=== PATIENT | male | born 1960 | race Caucasian/White ===

== ENCOUNTER 2023-05-12 13:55 | Emergency (ER) | payer BC ==
--- NOTE | 2023-05-12 14:36 | ED ---
General Adult HPI - General Source: patient, RN notes reviewed, old records reviewed Mode of arrival: ambulatory Limitations: no limitations <Dru Rebollar - Last Filed: 05/12/23 14:35> - General Source: patient, RN notes reviewed, old records reviewed <Zia Mathew - Last Filed: 05/12/23 21:43> - General Chief complaint: Chest Pain Stated complaint: Chest Pain - History of Present Illness Initial comments: 62-year-old male who is otherwise healthy presenting for evaluation of chest discomfort and arm numbness. Pain initially began on the right side of the c hest with some numbness in the right arm and this was followed by numbness to the left arm. 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 No dyspnea. No vomiting. No diaphoresis. (Dru Rebollar) Patient originally presented as a quick note. Presenting with right-sided chest discomfort and bilateral intermittent arm numbness. Numbness numbness has occurred previously, and occurred with movement of his bilateral upper extremities. 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 Denies any pain with this. States he also had an episode earlier today and yesterday of right- sided chest discomfort. Unknown if it is worse with movement. Resolved on its own. No known palliative or provocative factors. Did not radiate. States it was an irritating presence. Denies any fevers, chills, cough. Denies any other acute complaints at this time. Presents for further evaluation at this time. I with the patient when he was placed in a room.Currently has no complaints. (Zia Mathew) - Related Data Allergies Allergy/AdvReac Type Severity Reaction Status Date / Time No Known Allergies Allergy Verified 05/12/23 14:30 Review of Systems ROS Other: All systems not noted in ROS Statement are negative. <Dru Rebollar - Last Filed: 05/12/23 14:35> ROS Other: All systems not noted in ROS Statement are negative. <Zia Mathew - Last Filed: 05/12/23 21:43> ROS Statement: Those systems with pertinent positive or pertinent negative responses have been documented in the HPI. Review of Systems: CONST: Denies fever EYES: Denies blurry vision ENT: Denies nasal congestion C/V: Denies Chest pain RESP: Denies shortness of breath GI: Denies abdominal pain : Denies dysuria SKIN: Denies rash. MSK: Denies joint pain. NEURO: Denies headache (Zia Mathew) Past Medical History Past Medical History: No Reported History History of Any Multi-Drug Resistant Organisms: None Reported Past Surgical History: Hernia Repair Past Psychological History: No Psychological Hx Reported Smoking Status: Never smoker Past Alcohol Use History: Daily, Occasional Past Drug Use History: None Reported <Dru Rebollar Yudy - Last Filed: 05/12/23 14:35> General Exam Limitations: no limitations General appearance: alert, in no apparent distress Head exam: Present: atraumatic, normocephalic <LetyDru gray - Last Filed: 05/12/23 14:35> <Zia Mathew - Last Filed: 05/12/23 21:43> - General Exam Comments Initial Comments: Patient awake alert no acute distress (KalinaDru dorsey) General: Appears in no acute distress. HEAD: Normal with no signs of head trauma. EYES: PERRLA, EOMI, conjunctiva normal, no discharge. ENT: Hearing grossly intact, normal oropharynx. RESPIRATORY: Clear breath sounds bilaterally. No wheezes, rales, or rhonchi. C/V: Regular rate and rhythm. S1 and S2 auscultated, no edema, peripheral pulses 2+ and intact throughout ABD: Abd is soft, nontender, nondistended EXT: Normal range of motion, no obvious deformity. No neck pain. No numbness bilateral patient is appreciated. No tenderness some palpation of the cervical spine, thoracic spine. No chest wall tenderness to palpation. No focal complaints. SKIN: No rashes or lesions observed on exposed skin. NEURO: Alert and oriented x 4. (Zia Mathew) Course Vital Signs 05/12/23 05/12/23 14:30 21:19 Temperature 97.8 F Pulse Rate 72 57 L Respiratory 16 18 Rate Blood Pressure 171/99 166/96 O2 Sat by Pulse 100 98 Oximetry Medical Decision Making - Lab Data Result diagrams: 05/12/23 15:35 05/12/23 15:35 - EKG Data -: EKG Interpreted by Ca <Zia Mathew - Last Filed: 05/12/23 21:43> - Medical Decision Making Was pt. sent in by a medical professional or institution (Dr., PA, ELEMENTARY READING SPECIALIST, urgent care, hospital, or penitentiary...) When possible be specific @ -No Did you speak to anyone other than the patient for history (EMS, parent, family, police, friend...)? What history was obtained from this source @ -No Did you review nursing and triage notes (agree or disagree)? Why? @ -I reviewed and agree with nursing and triage notes Were old charts reviewed (outside hosp., previous admission, EMS record, old EKG, old radiological studies, urgent care reports/EKG's, penitentiary records)? Report findings @ -No old charts were reviewed Differential Diagnosis (chest pain, altered mental status, abdominal pain women, abdominal pain men, vaginal bleeding, weakness, fever, dyspnea, syncope, h eadache, dizziness, GI bleed, back pain, seizure, CVA, palpatations, mental health, musculoskeletal)? @ -Differential Chest Pain: Stable Angina, Unstable Angina, STEMI, NSTEMI Aortic Dissection, Pneumothorax, Musculoskeletal, Esophageal Spasm GERD, Cholecystitis, Pancreatitis, Zoster, this is not meant to be an all-inclusive list. EKG interpreted by me (3pts min.). @ -As above X-rays interpreted by me (1pt min.). @ -Chest x-ray reveals no obvious acute cardio pulmonary process. CT interpreted by me (1pt min.). @ -None done U/S interpreted by me (1pt. min.). @ -None done What testing was considered but not performed or refused? (CT, X-rays, U/S, labs)? Why? 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 We agree patient likely needs an MRI which cannot be done the ER. What meds were considered but not given or refused? Why? @ -None Did you discuss the management of the patient with other professionals (professionals i.e. JERZY Arana, ELEMENTARY READING SPECIALIST, lab, RT, psych nurse, forensic social worker, meat passer, teacher, hydrographical technical officer, family caseworker)? Give summary @ -No Was smoking cessation discussed for >3mins.? @ -No Was critical care preformed (if so, how long)? @ -No Were there social determinants of health that impacted care today? How? (Homele ssness, low income, unemployed, alcoholism, drug addiction, transportation, low edu. Level, literacy, decrease access to med. care, halfway, rehab)? @ -No Was there de-escalation of care discussed even if they declined (Discuss DNR or withdrawal of care, Hospice)? DNR status @ -No What co-morbidities impacted this encounter? (DM, HTN, Smoking, COPD, CAD, Cancer, CVA, ARF, Chemo, Hep., AIDS, mental health diagnosis, sleep apnea, morbid obesity)? @ -None Was patient admitted / discharged? Hospital course, mention meds given and route, prescriptions, significant lab abnormalities, going to OR and other pertinent info. @ -Patient presents for chest pain, and what sounds like a radiculopathy. Asymptomatic at this time. He has no cardiac risk factors other than age. Slightly elevated BMI. Vital signs within acceptable limits. Urgently evaluated as a quick note. Is currently asymptomatic. She'll work up included a normal EKG, chest x-ray, as well as laboratory studies are within acceptable limits including undetectable troponin. I did discuss with him I do believe he is likely expressing chest wall pain earlier as well as radiculopathy in bilateral upper extremities likely secondary to chronic cervical spine degeneration however this patient has been observed here for quite some time I did recommend we obtain a repeat troponin and repeat EKG and he was in agreement this plan. We did discuss imaging of the neck however patient had recent CT marleny ging and he knows that he has a bad neck with arthritis is likely contributing to symptoms of radiculopathy. He may need an MRI. He expressed understanding. Repeat troponin remains undetectable. Repeat EKG within acceptable limits. On reevaluation, patient remains asymptomatic. Heart score is low at 2-3. Patient will be discharged home at this time. He was in agreement this plan. Strict return precautions discussed. Recommended follow-up with PCP and metrologist. I instructed the patient to follow up with their PCP in the next 1-3 days. I explained that the patient should return to the emergency department if they experience any worsening symptoms. Strict return precautions were discussed with the patient. The patient expressed understanding of these instructions. I answered all questions that the patient had. The patient was discharged home in good condition with their prescriptions and follow up information. Undiagnosed new problem with uncertain prognosis? @ -No Drug Therapy requiring intensive monitoring for toxicity (Heparin, Nitro, Insulin, Cardizem)? @ -No Were any procedures done? @ -No Diagnosis/symptom? @ -Chest pain of unknown etiology, cervical radiculopathy Acute, or Chronic, or Acute on Chronic? @ -Acute Uncomplicated (without systemic symptoms) or Complicated (systemic symptoms)? @ -Uncomplicated Side effects of treatment? @ -No Exacerbation, Progression, or Severe Exacerbation? @ -No Poses a threat to life or bodily function? How? (Chest pain, [place], [place], pneumonia, PE, COPD, DKA, ARF, appy, cholecystitis, CVA, Diverticulitis, Homicidal, Suicidal, threat to staff... and all critical care pts) @ -No (Zia Mathew) - Lab Data Lab Results 05/12/23 05/12/23 05/12/23 Range/Units 15:35 15:35 15:35 WBC 6.5 (3.8-10.6) k/uL RBC 5.33 (4.30-5.90) m/uL Hgb 17.4 (13.0-17.5) gm/dL Hct 52.8 (39.0-53.0) % MCV 99.0 (80.0-100.0) fL MCH 32.7 (25.0-35.0) pg MCHC 33.0 (31.0-37.0) g/dL RDW 12.7 (11.5-15.5) % Plt Count 213 (150-450) k/uL MPV 7.6 Neutrophils % 61 % Lymphocytes % 26 % Monocytes % 10 % Eosinophils % 1 % Basophils % 0 % Neutrophils # 3.9 (1.3-7.7) k/uL Lymphocytes # 1.7 (1.0-4.8) k/uL Monocytes # 0.6 (0-1.0) k/uL Eosinophils # 0.0 (0-0.7) k/uL Basophils # 0.0 (0-0.2) k/uL PT 11.1 (10.0-12.5) sec INR 1.0 (<1.2) APTT 24.9 (22.0-30.0) sec Sodium 140 (137-145) mmol/L Potassium 4.4 (3.5-5.1) mmol/L Chloride 102 (98-107) mmol/L Carbon Dioxide 29 (22-30) mmol/L Anion Gap 9 mmol/L BUN 15 (9-20) mg/dL Creatinine 1.00 (0.66-1.25) mg/dL Est GFR (CKD-EPI)AfAm >90 (>60 ml/min/1.73 sqM) Est GFR (CKD-EPI)NonAf 80 (>60 ml/min/1.73 sqM) Glucose 105 H (74-99) mg/dL Calcium 9.4 (8.4-10.2) mg/dL Magnesium 2.2 (1.6-2.3) mg/dL Total Bilirubin 0.8 (0.2-1.3) mg/dL AST 24 (17-59) U/L ALT 25 (4-49) U/L Alkaline Phosphatase 66 (38-126) U/L Troponin I (0.000-0.034) ng/mL Total Protein 7.2 (6.3-8.2) g/dL Albumin 4.2 (3.5-5.0) g/dL 05/12/23 05/12/23 Range/Units 15:35 19:30 WBC (3.8-10.6) k/uL RBC (4.30-5.90) m/uL Hgb (13.0-17.5) gm/dL Hct (39.0-53.0) % MCV (80.0-100.0) fL MCH (25.0-35.0) pg MCHC (31.0-37.0) g/dL RDW (11.5-15.5) % Plt Count (150-450) k/uL MPV Neutrophils % % Lymphocytes % % Monocytes % % Eosinophils % % Basophils % % Neutrophils # (1.3-7.7) k/uL Lymphocytes # (1.0-4.8) k/uL Monocytes # (0-1.0) k/uL Eosinophils # (0-0.7) k/uL Basophils # (0-0.2) k/uL PT (10.0-12.5) sec INR (<1.2) APTT (22.0-30.0) sec Sodium (137-145) mmol/L Potassium (3.5-5.1) mmol/L Chloride (98-107) mmol/L Carbon Dioxide (22-30) mmol/L Anion Gap mmol/L BUN (9-20) mg/dL Creatinine (0.66-1.25) mg/dL Est GFR (CKD-EPI)AfAm (>60 ml/min/1.73 sqM) Est GFR (CKD-EPI)NonAf (>60 ml/min/1.73 sqM) Glucose (74-99) mg/dL Calcium (8.4-10.2) mg/dL Magnesium (1.6-2.3) mg/dL Total Bilirubin (0.2-1.3) mg/dL AST (17-59) U/L ALT (4-49) U/L Alkaline Phosphatase (38-126) U/L Troponin I <0.012 <0.012 (0.000-0.034) ng/mL Total Protein (6.3-8.2) g/dL Albumin (3.5-5.0) g/dL - EKG Data EKG Comments: 12-lead Electrocardiogram Interpretation Note EKG was reviewed and interpreted by myself. 12-lead ECG performed at 1603 is interpreted by me as revealing sinus bradycardia at a rate of 56 beats per minute. [place] is normal. IA Intervals 215 ms, QRS duration is 83 ms, QTc is 408 ms.. There were no ST or T wave abnormalities to suggest myocardial ischemia or injury. R wave progression across the precordium was satisfactory. By my interpretation this EKG is non-diagnostic for acute ischemia. 12-lead Electrocardiogram Interpretation Note EKG was reviewed and interpreted by myself. 12-lead ECG performed at 1924 is interpreted by me as revealing sinus bradycardia at a rate of 59 beats per minute. [place] is normal. IA interval is 207 ms, QRS duration is 91 ms, QTc is 412 ms.. There were no ST or T wave abnormalities to suggest myocardial i schemia or injury. R wave progression across the precordium was delayed. By my interpretation this EKG is non-diagnostic for acute ischemia. (Zia Mathew) Disposition <Dru Rebollar - Last Filed: 05/12/23 14:35> Is patient prescribed a controlled substance at d/c from ED?: No Time of Disposition: 20:51 <Zia Mathew - Last Filed: 05/12/23 21:43> Clinical Impression: Chest pain, Radiculopathy Disposition: HOME SELF-CARE Condition: Good Instructions (If sedation given, give patient instructions): Chest Pain (ED) Referrals: Nonstaff,Physician [Primary Care Provider] - 1-2 days
[2023-05-12 14:45] VITALS: TEMP 97.8
--- NOTE | 2023-05-12 15:11 | XR ---
EXAMINATION TYPE: XR chest 2V DATE OF EXAM: 05/12/2023 COMPARISON: None INDICATION: Chest pain TECHNIQUE: Frontal and lateral views of the chest are obtained. FINDINGS: The heart size is normal. The pulmonary vasculature is normal. The lungs are clear. IMPRESSION: 1. No acute pulmonary process.
[2023-05-12 16:36] LABS: Basophils % (A) 0 %; Eosinophils % (A) 1 %; HCT 52.8 % (39.0-53.0); HGB 17.4 gm/dL (13.0-17.5); Lymphocytes # (A) 1.7 k/uL (1.0-4.8); Lymphocytes % (A) 26 %; MCH 32.7 pg (25.0-35.0); Mean Platelet Volume 7.6; Monocytes # (A) 0.6 k/uL (0-1.0); Monocytes % (A) 10 %; Neutrophils # (A) 3.9 k/uL (1.3-7.7); Neutrophils % (A) 61 %; Platelet Count 213 k/uL (150-450); RBC 5.33 m/uL (4.30-5.90); RDW 12.7 % (11.5-15.5); WBC 6.5 k/uL (3.8-10.6)
[2023-05-12 16:42] LABS: ALT 25 U/L (4-49); AST 24 U/L (17-59); African American GFR (CKD) >90 (>60 ml/min/1.73 sqM); Albumin 4.2 g/dL (3.5-5.0); Alkaline Phosphatase 66 U/L (38-126); Anion Gap 9 mmol/L; Blood Urea Nitrogen 15 mg/dL (9-20); Calcium 9.4 mg/dL (8.4-10.2); Carbon Dioxide 29 mmol/L (22-30); Chloride 102 mmol/L (98-107); Glucose 105 mg/dL (74-99); Magnesium 2.2 mg/dL (1.6-2.3); Non-African American GFR(CKD) 80 (>60 ml/min/1.73 sqM); Potassium 4.4 mmol/L (3.5-5.1); Sodium 140 mmol/L (137-145); Total Bilirubin 0.8 mg/dL (0.2-1.3); Total Protein 7.2 g/dL (6.3-8.2)
[2023-05-12 16:46] LABS: Partial Thromboplastin Time 24.9 sec (22.0-30.0); Prothrombin Time 11.1 sec (10.0-12.5)
[2023-05-12 21:23] VITALS: BP 166/96; PULSE 57; RESP 18
== END 2023-05-12 21:19 | disposition home or self-care (01) ==
LOC: EC 13:55
DX: I44.0 Atrioventricular block, first degree (principal); M54.12 Radiculopathy, cervical region; I25.2 Old myocardial infarction
CPT/HCPCS: 36415; 71046; 80053; 83735; 84484; 85025; 85610; 85730; 93005; 99285